=== PATIENT | male | born 1985 | race Two or more races ===

== ENCOUNTER 2022-10-18 21:48 | Outpatient (CLI) | payer OTHER | END 2022-10-18 23:00 | disposition home or self-care (01) | LOC: LAB 21:48 | DX: Z20.828 Contact with and (suspected) exposure to other viral communicable diseases (principal); Z20.818 Contact with and (suspected) exposure to other bacterial communicable diseases ==

== ENCOUNTER 2023-09-22 08:51 | Outpatient (CLI) | payer OTHER | END 2023-09-22 09:05 | disposition home or self-care (01) | LOC: RAD 08:51 | DX: M25.512 Pain in left shoulder (principal); S43.402A Unspecified sprain of left shoulder joint, initial encounter ==